=== PATIENT | female | born 1980 | race Caucasian/White ===

== ENCOUNTER 2018-07-30 11:32 | Day surgery (SDC) | payer OTHER ==
[~2018-07-30] VITALS: Ht 180.3 cm; Wt 153.4 kg
[~2018-07-30 11:32] MED LIST: ALBU90OI INH; AMLO10 PO; AMLO5 PO; AZIT250 PO; B-121000 MC2 PO; Budeprion Sr150 MG; CEPH500 PO; CIPR500 PO; CITA20 PO; CRUTCH4 USE; Cipro500 MG PO; FERR325 PO; FLUSAL1005 INH; FLUSAL2505 INH; FURO20 PO; IBUP800 PO; LISI5 PO; MEDR10 PO; NAPR500 PO; OXYACE5T PO; Omeprazole20 M1 PO; PHENA100 PO; POTCHL20ER PO; PROM25 PO; PSEU120ER PO; Percocet 5-3251 EACH PO; RXHYD5325 PO; Sprintec1 EACH PO; TIOT18 INH; ZESTORETIC 20-121 EA PO; ZESTRIL40 MG PO; Zofran Odt4 MG SL
--- NOTE | 2018-07-30 12:16 | NUR ---
07/30/18 1216 Paola Rahman 2 IV ATTEMPTS BY [facility], 1ST IN L HAND WAS UNSUCCESSFUL, 2ND IN L FOREARM WAS SUCCESSFUL
[2018-07-30] MEDS ORDERED: FLUT1DIS2 INH (12:19)
--- NOTE | 2018-07-30 14:34 | NUR ---
07/30/18 1433 Jory Sotelo TOOK REPORT FROM [facility] PT RESTING IN RECLINER, DRINKING WATER AND TALKING WITH FAMILY AT CHAIRSIDE. PT DENIES PAIN/NAUSEA AT THIS TIME. VSS. CALL LIGHT IN REACH.
== END 2018-07-30 15:07 | disposition home or self-care (01) ==
LOC: ORSCSDS 11:32
PROVIDERS: Orthopaedic Surgery
PROC: 0MNN4ZZ Release Right Knee Bursa and Ligament, Percutaneous Endoscopic Approach (ICD-10-PCS; principal; 2018-07-30 13:00)
PROC: 0SBC4ZZ Excision of Right Knee Joint, Percutaneous Endoscopic Approach (ICD-10-PCS; principal; 2018-07-30 13:00)
DX: M22.2X1 Patellofemoral disorders, right knee (principal); M22.41 Chondromalacia patellae, right knee; M65.851 Other synovitis and tenosynovitis, right thigh; S83.241A Other tear of medial meniscus, current injury, right knee, initial encounter; I10 Essential (primary) hypertension; J44.9 Chronic obstructive pulmonary disease, unspecified; Z87.891 Personal history of nicotine dependence; K21.9 Gastro-esophageal reflux disease without esophagitis; E66.01 Morbid (severe) obesity due to excess calories; Z68.42 Body mass index [BMI] 45.0-49.9, adult; Z79.899 Other long term (current) drug therapy; F41.8 Other specified anxiety disorders
CPT/HCPCS: J0171; J0690; J1100; J1885; J2250; J2405; J2704; J3010; J7120

== ENCOUNTER → 2018-09-17 | Outpatient (CLI) | payer OTHER ==
[~2018-09-17] MED LIST changes: +FLUT1DIS2 INH
== END | disposition home or self-care (01) ==
LOC: LAB EV 12:03 → LAB SHORT 12:03
DX: L08.9 Local infection of the skin and subcutaneous tissue, unspecified (principal)
CPT/HCPCS: 87070; 87077; 87147; 87186; 87205

== ENCOUNTER 2018-11-16 10:19 | Emergency (ER) | payer SELFPAY ==
[~2018-11-16] VITALS: Ht 180.3 cm; Wt 151.9 kg
[2018-11-16 13:17] LABS: BASOPHILS ABSOLUTE AUTO 0.05 K/mm3 (0.00-0.23); BASOPHILS PERCENT AUTO 1 % (0-2); EOSINOPHILS ABSOLUTE AUTO 0.12 K/mm3 (0.00-0.68); EOSINOPHILS PERCENT AUTO 1 % (0-6); Hematocrit 44.9 % (33.0-51.0); Hemoglobin 15.1 g/dL (11.5-16.0); IMMATURE GRAN ABSOLUTE AUTO 0.05 K/mm3 (0.00-0.10); IMMATURE GRAN PERCENT AUTO 1 % (0-1); LYMPHOCYTES ABSOLUTE AUTO 1.36 K/mm3 (0.84-5.20); LYMPHOCYTES PERCENT AUTO 14 % (21-46); MONOCYTES ABSOLUTE AUTO 1.12 K/mm3 (0.16-1.47); MONOCYTES PERCENT AUTO 12 % (4-13); Mean Corpuscular HGB 32.8 pg (26.0-34.0); Mean Corpuscular HGB Conc 33.6 g/dL (31.5-36.5); Mean Corpuscular Volume 98 fL (80-100); Mean Platelet Volume 11.8 fL (9.1-12.4); NEUTROPHILS ABSOLUTE AUTO 6.79 K/mm3 (1.96-9.15); NEUTROPHILS PERCENT AUTO 72 % (41-73); Platelet Count 203 K/mm3 (150-400); RDW Coefficient Variation 12.8 % (11.7-14.2); RDW Standard Deviation 45.5 fL (35.1-46.3); White Blood Cell Count 9.49 K/mm3 (4.00-11.30)
[2018-11-16 13:25] LABS: Alanine Aminotransfer (ALT/SGP 86 U/L (12-78); Albumin, Blood 3.3 g/dL (3.4-5.0); Albumin/Globulin Ratio 0.8 (0.8-1.8); Alk Phos 83 U/L (50-136); Anion Gap 9 mmol/L (6-16); Aspartate Aminotrans (AST/SGOT 65 U/L (12-37); Bilirubin, Total 0.5 mg/dL (0.1-1.0); Blood Urea Nitrogen 6 mg/dL (8-24); CO2, Blood 23 mmol/L (21-32); Calcium, Blood 8.6 mg/dL (8.5-10.1); Chloride, Blood 102 mmol/L (98-108); Globulin, Blood 4.4 g/dL (2.2-4.0); Glomerular Filtration Rate >60 (60-); Glucose, Blood 127 mg/dL (70-99); Potassium, Blood 4.3 mmol/L (3.5-5.5); Sodium, Blood 134 mmol/L (136-145); Total Protein, Blood 7.7 g/dL (6.4-8.2)
[2018-11-16] MEDS ORDERED: Keflex500 MG PO (16:27)
[2018-11-16] MEDS ORDERED: Vibramycin100 MG PO (16:27)
[2018-12-31] MEDS ORDERED: Zestril40 MG PO (11:09)
== END 2018-11-16 16:40 | disposition home or self-care (01) ==
LOC: ER 10:19
PROVIDERS: Emergency Medicine
DX: L08.9 Local infection of the skin and subcutaneous tissue, unspecified (principal); Z88.8 Allergy status to other drugs, medicaments and biological substances; Z79.899 Other long term (current) drug therapy; I10 Essential (primary) hypertension; J44.9 Chronic obstructive pulmonary disease, unspecified; F32.9 Major depressive disorder, single episode, unspecified; Z87.891 Personal history of nicotine dependence
CPT/HCPCS: 36415; 73660; 80053; 85025; 85651; 86141; 99283-25

== ENCOUNTER 2018-11-24 07:30 | Day surgery (SDC) | payer SELFPAY ==
[~2018-11-24 07:30] MED LIST changes: +Keflex500 MG PO; +Vibramycin100 MG PO
[2018-12-31] MEDS ORDERED: Zestril40 MG PO (11:09)
== END 2018-11-24 23:36 | disposition home or self-care (01) ==
LOC: WOUND 07:30
DX: L97.519 Non-pressure chronic ulcer of other part of right foot with unspecified severity (principal); S91.101S Unspecified open wound of right great toe without damage to nail, sequela; I10 Essential (primary) hypertension
CPT/HCPCS: G0463

== ENCOUNTER 2018-11-30 00:28 | Day surgery (SDC) | payer SELFPAY ==
[2018-12-31] MEDS ORDERED: Zestril40 MG PO (11:09)
== END 2018-11-30 22:55 | disposition home or self-care (01) ==
LOC: WOUND 00:28
DX: L97.519 Non-pressure chronic ulcer of other part of right foot with unspecified severity (principal); S91.101S Unspecified open wound of right great toe without damage to nail, sequela; I10 Essential (primary) hypertension

== ENCOUNTER 2018-12-08 13:34 | Day surgery (SDC) | payer SELFPAY ==
[2018-12-31] MEDS ORDERED: Zestril40 MG PO (11:09)
== END 2018-12-08 23:11 | disposition home or self-care (01) ==
LOC: WOUND 13:34
DX: L97.529 Non-pressure chronic ulcer of other part of left foot with unspecified severity (principal); S91.101S Unspecified open wound of right great toe without damage to nail, sequela; I10 Essential (primary) hypertension; J44.9 Chronic obstructive pulmonary disease, unspecified

== ENCOUNTER 2018-12-15 00:52 | Day surgery (SDC) | payer SELFPAY ==
[2018-12-31] MEDS ORDERED: Zestril40 MG PO (11:09)
== END 2018-12-15 22:55 | disposition home or self-care (01) ==
LOC: WOUND 00:52
DX: L97.519 Non-pressure chronic ulcer of other part of right foot with unspecified severity (principal); S91.101S Unspecified open wound of right great toe without damage to nail, sequela; M86.48 Chronic osteomyelitis with draining sinus, other site; I10 Essential (primary) hypertension

== ENCOUNTER 2018-12-22 00:03 | Day surgery (SDC) | payer OTHER ==
[2018-12-31] MEDS ORDERED: Zestril40 MG PO (11:09)
== END 2018-12-22 22:39 | disposition home or self-care (01) ==
LOC: WOUND 00:03
DX: M86.171 Other acute osteomyelitis, right ankle and foot (principal); L97.511 Non-pressure chronic ulcer of other part of right foot limited to breakdown of skin; I10 Essential (primary) hypertension; S91.101S Unspecified open wound of right great toe without damage to nail, sequela
CPT/HCPCS: G0463

== ENCOUNTER 2019-01-01 09:25 | Day surgery (SDC) | payer OTHER ==
[~2019-01-01 09:25] MED LIST changes: +Zestril40 MG PO
--- NOTE | 2019-01-01 10:49 | NUR ---
01/01/19 Marii Ackerman RN ATTEMPTED IV ONCE IN THE LEFT HAND AND ONCE IN THE RIGHT HAND. BOTH ATTEMPTS UNSUCESSFUL. ORSKARY ATTEMPTED IV ONCE IN THE RIGHT FOREARM AND ONCE IN THE RIGHT AC, BOTH ATTEMPTS UNSUCESSFUL. GABINO ATTEMPTED IV IN THE LEFT WRIST UNSUCESSFUL. ORSDEVENDRA ATTEMPTED IV IN THE RIGHT FOOT, LEG CRAMP MOVED IV CATHETER; ATTEMPT UNSUCESSFUL. ORSLIV BROUGHT IN TO ATTEMPT IV IN THE LEFT HAND; ATTEMPT UNSUCESSFUL.
== END 2019-01-01 12:27 | disposition home or self-care (01) ==
LOC: ORSCSDS 09:25
PROVIDERS: Podiatrist Foot & Ankle Surgery
PROC: 0Y6R0Z1 Detachment at Right 2nd Toe, High, Open Approach (ICD-10-PCS; principal; 2019-01-01 11:15)
DX: M86.671 Other chronic osteomyelitis, right ankle and foot (principal); L97.519 Non-pressure chronic ulcer of other part of right foot with unspecified severity; I10 Essential (primary) hypertension; G47.33 Obstructive sleep apnea (adult) (pediatric); K21.9 Gastro-esophageal reflux disease without esophagitis; J44.9 Chronic obstructive pulmonary disease, unspecified; F17.210 Nicotine dependence, cigarettes, uncomplicated; G62.9 Polyneuropathy, unspecified; E78.5 Hyperlipidemia, unspecified; E66.01 Morbid (severe) obesity due to excess calories; Z68.42 Body mass index [BMI] 45.0-49.9, adult; Z79.899 Other long term (current) drug therapy
CPT/HCPCS: 88305; 88311; J0171; J0690; J2250; J2405; J2704; J7120

== ENCOUNTER → 2019-04-29 | Outpatient (CLI) | payer OTHER ==
[~2019-04-29] MED LIST changes: +ACET325 PO; +Bactrim Ds Tab1 EACH PO; +CEFD300 PO; +FLUTICASONE-SA1 EACH INH; +HYDHCL25 PO; +Hydrochlorothia25 MG PO; +OXYC5 PO; +TOPI25 PO; +ZOFRAN4 MG PO
[2019-04-29 09:44] LABS: BASOPHILS ABSOLUTE AUTO 0.03 K/mm3 (0.00-0.23); BASOPHILS PERCENT AUTO 0 % (0-2); EOSINOPHILS ABSOLUTE AUTO 0.02 K/mm3 (0.00-0.68); EOSINOPHILS PERCENT AUTO 0 % (0-6); Hematocrit 37.8 % (33.0-51.0); Hemoglobin 13.5 g/dL (11.5-16.0); IMMATURE GRAN ABSOLUTE AUTO 0.07 K/mm3 (0.00-0.10); IMMATURE GRAN PERCENT AUTO 1 % (0-1); LYMPHOCYTES PERCENT AUTO 9 % (21-46); MONOCYTES ABSOLUTE AUTO 1.22 K/mm3 (0.16-1.47); MONOCYTES PERCENT AUTO 14 % (4-13); Mean Corpuscular HGB 33.2 pg (26.0-34.0); Mean Corpuscular HGB Conc 35.7 g/dL (31.5-36.5); Mean Corpuscular Volume 93 fL (80-100); Mean Platelet Volume 9.8 fL (9.1-12.4); NEUTROPHILS PERCENT AUTO 76 % (41-73); Platelet Count 243 K/mm3 (150-400); RDW Coefficient Variation 12.8 % (11.7-14.2); RDW Standard Deviation 43.4 fL (35.1-46.3); Red Blood Cell Count 4.07 M/mm3 (3.80-5.20); White Blood Cell Count 9.04 K/mm3 (4.00-11.30)
[2019-04-29 09:50] LABS: Bun/Creatinine Ratio 12.8 (12.0-20.0); Calcium, Blood 9.8 mg/dL (8.5-10.1); Creatinine, Blood 2.9 mg/dL (0.40-1.00); Potassium, Blood 3.6 mmol/L (3.5-5.5)
[2019-04-29 13:46] LABS: Bun/Creatinine Ratio 15.1 (12.0-20.0); Calcium, Blood 8.6 mg/dL (8.5-10.1); Creatinine, Blood 2.18 mg/dL (0.40-1.00); Potassium, Blood 4.2 mmol/L (3.5-5.5)
== END | disposition home or self-care (01) ==
LOC: LAB SHORT 09:38 → LAB EV 09:38
PROVIDERS: Family Medicine
DX: E86.0 Dehydration (principal); E87.1 Hypo-osmolality and hyponatremia; N39.0 Urinary tract infection, site not specified
CPT/HCPCS: 80048; 85025; 87077; 87086; 87186

== ENCOUNTER → 2019-04-30 | Outpatient (CLI) | payer OTHER ==
[2019-04-30 16:34] LABS: Bun/Creatinine Ratio 15.2 (12.0-20.0); Calcium, Blood 9.7 mg/dL (8.5-10.1); Creatinine, Blood 1.65 mg/dL (0.40-1.00); Potassium, Blood 3.9 mmol/L (3.5-5.5)
== END | disposition home or self-care (01) ==
LOC: LAB EV 16:16 → LAB SHORT 16:16
PROVIDERS: Family Medicine
DX: E87.1 Hypo-osmolality and hyponatremia (principal)
CPT/HCPCS: 80048

== ENCOUNTER 2019-05-01 12:41 | Inpatient (IN) | payer OTHER ==
[~2019-05-01] VITALS: Ht 177.8 cm; Wt 140.9 kg
[~2019-05-01 12:41] MED LIST changes: -ACET325 PO; -Bactrim Ds Tab1 EACH PO; -CEFD300 PO; -FLUTICASONE-SA1 EACH INH; -HYDHCL25 PO; -Hydrochlorothia25 MG PO; -OXYC5 PO; -TOPI25 PO; -ZOFRAN4 MG PO
[2019-05-01 15:44] LABS: BASOPHILS ABSOLUTE AUTO 0.05 K/mm3 (0.00-0.23); BASOPHILS PERCENT AUTO 0 % (0-2); EOSINOPHILS ABSOLUTE AUTO 0.04 K/mm3 (0.00-0.68); EOSINOPHILS PERCENT AUTO 0 % (0-6); Hematocrit 38.1 % (33.0-51.0); Hemoglobin 13.3 g/dL (11.5-16.0); IMMATURE GRAN ABSOLUTE AUTO 0.08 K/mm3 (0.00-0.10); IMMATURE GRAN PERCENT AUTO 1 % (0-1); LYMPHOCYTES ABSOLUTE AUTO 1.18 K/mm3 (0.84-5.20); LYMPHOCYTES PERCENT AUTO 8 % (21-46); MONOCYTES ABSOLUTE AUTO 1.28 K/mm3 (0.16-1.47); MONOCYTES PERCENT AUTO 9 % (4-13); Mean Corpuscular HGB Conc 34.9 g/dL (31.5-36.5); Mean Corpuscular Volume 95 fL (80-100); Mean Platelet Volume 9.8 fL (9.1-12.4); NEUTROPHILS ABSOLUTE AUTO 12.24 K/mm3 (1.96-9.15); NEUTROPHILS PERCENT AUTO 82 % (41-73); Platelet Count 242 K/mm3 (150-400); RDW Coefficient Variation 12.4 % (11.7-14.2); RDW Standard Deviation 43.5 fL (35.1-46.3); Red Blood Cell Count 4.03 M/mm3 (3.80-5.20); White Blood Cell Count 14.87 K/mm3 (4.00-11.30)
[2019-05-01 15:58] LABS: Bun/Creatinine Ratio 17.9 (12.0-20.0); Calcium, Blood 9.5 mg/dL (8.5-10.1); Creatinine, Blood 1.12 mg/dL (0.40-1.00); Potassium, Blood 3.5 mmol/L (3.5-5.5)
[2019-05-01] MEDS ORDERED: Hydrochlorothia25 MG PO (16:55)
[2019-05-01] MEDS ORDERED: TOPI25 PO (16:56)
[2019-05-01] MEDS ORDERED: FLUTICASONE-SA1 EACH INH (16:56)
--- NOTE | 2019-05-01 18:46 | NUR ---
Assumed Care Patient admitted from ER to room 312 via stretcher. A/Ox4, patient oriented to room and call system. Bed in lowest position. Family visiting and at bedside. Per Dr. Dangelo, home medications of Albuteral, Fluticasone, and Omeprazole to be updated in [facility], this RN will ensure these meds are updated. Home med list incomplete at this time, family will send pictures of medication bottles to patient so RN can update Med Rec; oncoming RN to call Dr. Dangelo with updates; will pass this on. Patient independent in room. Call light near, will continue to monitor.
[2019-05-01] MEDS ORDERED: HYDHCL25 PO (20:53)
[2019-05-01] MEDS ORDERED: ZOFRAN4 MG PO (20:55)
[2019-05-01] MEDS ORDERED: CEFD300 PO (20:55)
[2019-05-01] MEDS ORDERED: AMLO10 PO (20:56)
--- NOTE | 2019-05-02 04:59 | NUR ---
SHIFT SUMMARY PT HAS RESTED COMFORTABLY T/O THE SHIFT. PT HAS BEEN MEDICATED FOR PAIN IN HER LEFT GREAT TOE R/T TO CELLULITIS PER ORDERS. PAIN MEDICATION PROVIDES RELIEF. LEFT GREAT TOE IS SWOLLEN WITH CLEAR PUS LIKE DRAINAGE. PT HAS NO FEELING IN HER FEET OR TOES, BUT SHE REPORTS THAT SHE CAN FEEL THE PAIN SHOOTING UP HER LEG. IV ABX INFUSED PER ORDERS. MAINTENANCE FLUIDS INFUSING PER ORDERS. LEFT GREAT TOE WOUND CULTURED AND SENT, PENDING RESULTS AT THIS TIME. PT HAS BEEN INDPENDENT AND AMBULATORY IN THE ROOM. VITALS STABLE. BED IN LOWEST POSITION, CALL LIGHT WITHIN REACH. WILL CONTINUE TO MONITOR AND REPORT TO ONCOMING RN.
[2019-05-02 05:22] LABS: BASOPHILS ABSOLUTE AUTO 0.04 K/mm3 (0.00-0.23); BASOPHILS PERCENT AUTO 0 % (0-2); EOSINOPHILS ABSOLUTE AUTO 0.08 K/mm3 (0.00-0.68); EOSINOPHILS PERCENT AUTO 1 % (0-6); Hematocrit 35.8 % (33.0-51.0); Hemoglobin 12.1 g/dL (11.5-16.0); IMMATURE GRAN ABSOLUTE AUTO 0.08 K/mm3 (0.00-0.10); IMMATURE GRAN PERCENT AUTO 1 % (0-1); LYMPHOCYTES ABSOLUTE AUTO 1.22 K/mm3 (0.84-5.20); LYMPHOCYTES PERCENT AUTO 10 % (21-46); MONOCYTES ABSOLUTE AUTO 1.33 K/mm3 (0.16-1.47); MONOCYTES PERCENT AUTO 11 % (4-13); Mean Corpuscular HGB 32.6 pg (26.0-34.0); Mean Corpuscular HGB Conc 33.8 g/dL (31.5-36.5); Mean Corpuscular Volume 97 fL (80-100); Mean Platelet Volume 9.8 fL (9.1-12.4); NEUTROPHILS ABSOLUTE AUTO 9.63 K/mm3 (1.96-9.15); NEUTROPHILS PERCENT AUTO 78 % (41-73); Platelet Count 251 K/mm3 (150-400); RDW Coefficient Variation 12.7 % (11.7-14.2); RDW Standard Deviation 45.2 fL (35.1-46.3); Red Blood Cell Count 3.71 M/mm3 (3.80-5.20); White Blood Cell Count 12.38 K/mm3 (4.00-11.30)
[2019-05-02 05:46] LABS: Alanine Aminotransfer (ALT/SGP 40 U/L (12-78); Albumin, Blood 2.9 g/dL (3.4-5.0); Albumin/Globulin Ratio 0.6 (0.8-1.8); Alk Phos 93 U/L (50-136); Anion Gap 10 mmol/L (6-16); Aspartate Aminotrans (AST/SGOT 25 U/L (12-37); Blood Urea Nitrogen 13 mg/dL (8-24); Bun/Creatinine Ratio 13.2 (12.0-20.0); CO2, Blood 23 mmol/L (21-32); Calcium, Blood 8.5 mg/dL (8.5-10.1); Chloride, Blood 97 mmol/L (98-108); Creatinine, Blood 0.99 mg/dL (0.40-1.00); Globulin, Blood 4.6 g/dL (2.2-4.0); Glomerular Filtration Rate >60 (60-); Glucose, Blood 93 mg/dL (70-99); Potassium, Blood 3.6 mmol/L (3.5-5.5); Sodium, Blood 130 mmol/L (136-145); Total Protein, Blood 7.5 g/dL (6.4-8.2)
--- NOTE | 2019-05-02 19:09 | NUR ---
Shift Summary A/Ox4, pleasant and cooperative with care. Pt has been independent in room and to the bathroom. Dressing changed x 2 and is now C/D/I. Medicated for 09/21 pain x 2 with good results. No other concerns at this time.
--- NOTE | 2019-05-03 04:57 | NUR ---
SHIFT SUMMARY PT PLEASANT AND COOPERATIVE, ANXIOUS AT TIMES. PT REPORTS BEING MORE ANXIOUS THIS EVENING DUE TO PROCEDURE SCHEDULED FOR TODAY. MEDICATED W/ ATARAX 25 MG X 1. PT'S LEFT GREAT TOE RED AND SWOLLEN. MODERATE AMOUNT OF PURULENT DRAINAGE. DRESSING CHANGED X 2 THIS SHIFT. CLEANSED W/ WOUND PLANNING ANALYST AND DRESSED W/ KERLEX AND ROSA ELENA WRAP. SURGICAL BOOT ON LEFT FOOT AT ALL TIMES. PT REPORTS HAVING NO FEELING TO BILATERAL FEET BUT HAS SHOOTING PAIN UP HER LEFT LEG. MEDICATED X 2 W/ 5 MG ROXICODONE. PT NPO SINCE MIDNIGHT FOR PROCEDURE TODAY OF I & D W/ POSSIBLE AMPUTATION. VITAL SIGNS STABLE. NO OTHER ACUTE CHANGES. WILL CONTINUE TO MONITOR AND REPORT TO DAY RN.
[2019-05-03 08:09] LABS: Vancomycin, Trough 19.7 ug/mL (5.0-10.0)
--- NOTE | 2019-05-03 13:37 | NUR ---
PT TO DAY SURGERY VIA [facility].
--- NOTE | 2019-05-03 14:25 | NUR ---
Patient up to Ambulate independently. Gait steady. History, Chart, Medications and Allergies reviewed before start of procedure.Lungs clear T/O to Auscultation. Patient confirms NPO status and agrees with scheduled surgery. TWO PIERCINGS PLACED IN ZIPLOC AND ATTACHED TO RING ON CHART WITH NAME TAG. PLACED BOOT FOR LEFT FOOT UNDER BED IN BAG WITH NAME TAG ON SHOE AND BAG. AWARE OF PLAN FOR SURGERY.
--- NOTE | 2019-05-03 19:33 | NUR ---
SHIFT SUMMARY. A&OX4, CGA TO BSC WITH FWW, POST OP SHOE, HEEL TOUCH LLE ONLY, PT DID WELL WITH TRANSFERS AFTER INSTRUCTION. DRESSING TO LLE C/D/I, PT REPORTS NUMBNESS TO BILATERAL FEET. PT REPORTED PAIN TO L LEG THAT WAS MANAGED WELL WITH PO ROXICODONE. PT DENIES N/V, SOB. FAMILY AT BEDSIDE THIS AFTERNOON. NO NEW CHANGES OR CONCERNS.
--- NOTE | 2019-05-03 20:00 | NUR ---
JARRET SITTING IN BED WATCHING TV. STATES PAIN IS MILD BUT WILL NEED SOME PAIN MEDS SOON. STATES SHE CAN FEEL THE PAIN IN THE UPPER CALF IT RADIATES UP, FEET ARE NUMB WHICH ARE NORMAL FOR HER. CHECKED TOES FOR CIRCULATION WHICH WERE NORMAL. NO REDNESS UP THE CALF. IV FLUIDS INFUSING WELL. FAMILY IS AT THE SIDE VISITING. DENIES OTHER COMPLAINTS AT THIS TIME. WILL MEDICATE FOR PAIN WHICH MED IS DUE. CALL LIGHT IN REACH.
--- NOTE | 2019-05-04 05:14 | NUR ---
SHIFT SUMMARY: JARRET VS HAVE REMAINED STABLE. PAIN REMAINED AT TOLERABLE LEVEL WITH USE OF OXYCODONE. IV CONTINUED TO INFUSE FLUIDS AND ANTIBOTICS PER ORDERS. SHE IS ABLE TO USE HEEL TOUCH WITH ORTHO SHOE IN PLACE AND WALKER TO USE THE BATHROOM. NEEDS 1 PERSON ASSIST DUE TO IV POLE. LEFT FOOT GOOD CIRCULATION, CHRONIC NUMBNESS, NO REDNESS UP THE LEG. SHE HAS KEPT IT ELEVATED ON PILLOW WHILE IN BED. NO OTHER ACUTE CHANGES OCCURRED THIS SHIFT. CALL LIGHT REMAINED IN REACH.
[2019-05-04 09:10] LABS: Vancomycin, Trough 22.3 ug/mL (5.0-10.0)
--- NOTE | 2019-05-04 09:18 | NUR ---
05/04/19 0918 Anu Harkins VERIFICATIONS: EDIT CHART.
--- NOTE | 2019-05-04 19:07 | NUR ---
SHIFT SUMMARY. A&OX4, INDEPENDENT TO BATHROOM WITH L HEEL TOUCH WB WITH FWW, PT TOLERATING WELL. L FOOT STILL WITH REDNESS, DR. ARMENTA REQUESTED THAT PT STAY FOR FURTHER IV ABX, DR. JOHNSON NOTIFIED. PT REPORTS L LEG PAIN THAT IS MANAGED WELL WITH CURRENT ORDERS. CHRONIC BILATERAL FOOT NUMBNESS. PT DENIES SOB, N/V. ADEQUATE PO INTAKE. IV SL. DRESSING TO L FOOT C/D/I. NO NEW CHANGES OR CONCERNS.
--- NOTE | 2019-05-04 19:29 | NUR ---
PATIENT SITTING ON SIDE OF BED, VS BEING TAKEN. IV INFUSING JUST FINISHED ANTIBOTICS. SL IV. SITE APPEARS A LITTLE RED, BUT FLUSHES GOOD WITH NO PAIN. STATES PAIN IS GOOD AT THIS TIME. JUST GOT PAIN MEDICATION. LEFT FOOT STILL WRAPPED BUT HAS GOOD CIRCULATION TO TOES, NUMBNESS UNCHANGED. PATIENT GOT UP TO BATHROOM WITH WALKER ON HER OWN. CALL LIGHT IN REACH.
--- NOTE | 2019-05-05 05:39 | NUR ---
SHIFT SUMMARY: JARRET VS HAVE REMAINED STABLE. IV WAS RESTARTED IN THE LEFT FA 22 G. DC'D PREVIOUS IV FOR PAIN. PAIN HAS REMAINED TOLERABLE WITH USE OF OXYCODONE. IS INDEPENDANT IN THE ROOM WITH WALKER. ORTHO SHOE HAS REMAINED ON LEFT FOOT, GOOD CIRCULATION NOTED. NO ACUTE CHANGES OR CONCERN NOTED. CALL LIGHT REMAINED IN REACH AND USED APPROPRIATLY.
[2019-05-05 05:55] LABS: BASOPHILS ABSOLUTE AUTO 0.04 K/mm3 (0.00-0.23); BASOPHILS PERCENT AUTO 1 % (0-2); EOSINOPHILS ABSOLUTE AUTO 0.11 K/mm3 (0.00-0.68); EOSINOPHILS PERCENT AUTO 2 % (0-6); Hematocrit 33.7 % (33.0-51.0); Hemoglobin 11.3 g/dL (11.5-16.0); IMMATURE GRAN PERCENT AUTO 1 % (0-1); LYMPHOCYTES ABSOLUTE AUTO 1.69 K/mm3 (0.84-5.20); LYMPHOCYTES PERCENT AUTO 24 % (21-46); MONOCYTES ABSOLUTE AUTO 0.69 K/mm3 (0.16-1.47); MONOCYTES PERCENT AUTO 10 % (4-13); Mean Corpuscular HGB 32.8 pg (26.0-34.0); Mean Corpuscular HGB Conc 33.5 g/dL (31.5-36.5); Mean Corpuscular Volume 98 fL (80-100); Mean Platelet Volume 9.4 fL (9.1-12.4); NEUTROPHILS PERCENT AUTO 62 % (41-73); Platelet Count 398 K/mm3 (150-400); RDW Coefficient Variation 12.6 % (11.7-14.2); RDW Standard Deviation 45.6 fL (35.1-46.3); Red Blood Cell Count 3.45 M/mm3 (3.80-5.20); White Blood Cell Count 6.93 K/mm3 (4.00-11.30)
[2019-05-05 06:14] LABS: Anion Gap 7 mmol/L (6-16); Blood Urea Nitrogen 4 mg/dL (8-24); Bun/Creatinine Ratio 4.6 (12.0-20.0); CO2, Blood 22 mmol/L (21-32); Calcium, Blood 8.6 mg/dL (8.5-10.1); Chloride, Blood 106 mmol/L (98-108); Creatinine, Blood 0.88 mg/dL (0.40-1.00); Glomerular Filtration Rate >60 (60-); Glucose, Blood 87 mg/dL (70-99); Potassium, Blood 3.8 mmol/L (3.5-5.5); Sodium, Blood 135 mmol/L (136-145); Vancomycin, Trough 15.4 ug/mL (5.0-10.0)
--- NOTE | 2019-05-05 15:46 | NUR ---
summary PT IS A/O X4, PLEASANT AFFECT. SHE IS UP IND w POST-OP SHOE L FOOT, HEEL TOUCH WT BRG. DR ARMENTA IN TO ASSESS L BIG TOE AMPUTATION WOUND & CHANGE DRSG TODAY, STATE REDDENED AREA HAS IMPROVED HOWEVER CONTINUES TO AWAIT CX RESULTS, STATE NO D/C TODAY, POSSIBLY TOMORROW. IV ANTIBX CONTINUE. VSS. DR JOHNSON & SEKOUEEN D/C BOTTOM TURNING LATHE TENDER WERE IN SEE HER, ADDRESS POSSIBLE HOME NEEDS AFTER D/C.
--- NOTE | 2019-05-06 05:30 | NUR ---
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 PT IS ABLE TO AMBULATE INDEPEDENTLY IN THE ROOM WITH A WALKER AND SURGICAL SHOE. SURGICAL DRESSING IS IN PLACE AND INTACT. SHE WAS MEDICATED X2 FOR LLE PAIN WITH PRN OXYCODONE. NO COMPLAINTS OF NAUSEA OR SOB. VITAL SIGNS STABLE. NO ACUTE CHANGES IN PT CONDITION NOTED. WILL CONTINUE TO MONITOR AND TREAT PER [facility] UNTIL HAND OFF TO DAY SHIFT RN.
--- NOTE | 2019-05-06 15:41 | NUR ---
DISCHARGE DR ARMENTA IN THIS AFTERNOON TO SEE PT & REVIEW RESULTS OF TESTS, STATE OK FOR D/C HOME TODAY, PROVIDE PT W WRITTEN SCRIPTS FOR PERCOCET & BACTRIM. INSTRUCT PT TO KEEP L FOOT DRSG CDI & F/U W HIM IN 1 WEEK FOR WOUND CARE/DRSG CHANGE. DR JOHNSON IN TO SEE PT, PROVIDE D/C ORDERS. [facility] DC PIZZA MAKER ARRANGE F/U APPTS. & WALKER FOR HOME USE. IV SITE D/C INTACT. D/C INSTRUCT REVIEWED. PT'S IN FOR TRANSPORT HOME.
[2019-05-06] MEDS ORDERED: ACET325 PO (15:50)
[2019-05-06] MEDS ORDERED: OXYC5 PO (15:51)
[2019-05-06] MEDS ORDERED: Bactrim Ds Tab1 EACH PO (15:54)
== END 2019-05-06 16:30 | disposition home or self-care (01) | DRG 580 ==
LOC: ER 12:41 → MEDS 16:21 → ER 17:35 → MEDS 17:47 → ENPENDDIS 05-06 14:07 → MEDS 05-06 16:30
PROVIDERS: Internal Medicine; Physician Assistant; Podiatrist Foot & Ankle Surgery; ADMIT Internal Medicine
PROC: 0Y6Q0Z0 Detachment at Left 1st Toe, Complete, Open Approach (ICD-10-PCS; principal; 2019-05-03 14:30)
DX: L02.612 Cutaneous abscess of left foot (principal); E87.1 Hypo-osmolality and hyponatremia; L03.116 Cellulitis of left lower limb; Z68.41 Body mass index [BMI] 40.0-44.9, adult; G62.9 Polyneuropathy, unspecified; F17.210 Nicotine dependence, cigarettes, uncomplicated; V00.818A Other accident with wheelchair (powered), initial encounter; I10 Essential (primary) hypertension; J44.9 Chronic obstructive pulmonary disease, unspecified; E66.01 Morbid (severe) obesity due to excess calories; F41.8 Other specified anxiety disorders; Y92.9 Unspecified place or not applicable
CPT/HCPCS: 36415; 73630; 80048; 80053; 80202; 82565; 83605; 85025; 87040; 87070; 87075; 87076; 87205; 88305; 88311; 94640; 94760; 96365-59; 96372-59; 99284-25; J0696; J1170; J1644; J2250; J2543; J2704; J3010; J3370; J3480; J7030; J7050; J7120

== ENCOUNTER 2019-07-16 14:31 | Emergency (ER) | payer OTHER ==
[~2019-07-16] VITALS: Ht 180.3 cm; Wt 136.1 kg
[~2019-07-16 14:31] MED LIST changes: -LOMAIRA8 MG PO; -Norco 5-325 Ta1 EACH PO
[2019-07-16] MEDS ORDERED: LOMAIRA8 MG PO (14:56)
[2019-07-16 16:18] LABS: Source, Urine Clean Catch
[2019-07-16 16:21] LABS: Bilirubin, Urine Neg (Neg); Blood, Urine 1+ (Neg); Glucose Qualitative, Urine Neg (Neg); Ketones, Urine Neg (Neg); Leukocyte Esterase, Urine Neg (Neg); Nitrite, Urine Neg (Neg); Protein, Urine 1+ (Neg); Urobilinogen, Urine NORM (Normal)
[2019-07-16 16:27] LABS: Appearance, Urine Clear (Clear); Color, Urine Yellow (P-Yellow)
[2019-07-16 16:29] LABS: Bacteria Few /hpf; Red Blood Cells, Urine 0-2 /hpf (0-2); Squamous Epithelial Cells Few /hpf (Few); White Blood Cells, Urine 0-2 /hpf (0-5)
[2019-07-16] MEDS ORDERED: Norco 5-325 Ta1 EACH PO (16:50)
== END 2019-07-16 16:55 | disposition home or self-care (01) ==
LOC: ER 14:31
PROVIDERS: Physician Assistant
DX: K63.89 Other specified diseases of intestine (principal); I10 Essential (primary) hypertension; J45.909 Unspecified asthma, uncomplicated; F41.9 Anxiety disorder, unspecified; F32.9 Major depressive disorder, single episode, unspecified; G62.9 Polyneuropathy, unspecified; F17.210 Nicotine dependence, cigarettes, uncomplicated; Z88.8 Allergy status to other drugs, medicaments and biological substances; Z79.899 Other long term (current) drug therapy
CPT/HCPCS: 74176; 81001; 96360; 99284-25; J7030

== ENCOUNTER → 2019-07-16 | Outpatient (CLI) | payer OTHER ==
[~2019-07-16] MED LIST changes: +ACET325 PO; +Bactrim Ds Tab1 EACH PO; +CEFD300 PO; +FLUTICASONE-SA1 EACH INH; +HYDHCL25 PO; +Hydrochlorothia25 MG PO; +LOMAIRA8 MG PO; +Norco 5-325 Ta1 EACH PO; +OXYC5 PO; +TOPI25 PO; +ZOFRAN4 MG PO
[2019-07-16 13:36] LABS: BASOPHILS ABSOLUTE AUTO 0.04 K/mm3 (0.00-0.23); BASOPHILS PERCENT AUTO 0 % (0-2); EOSINOPHILS ABSOLUTE AUTO 0.09 K/mm3 (0.00-0.68); EOSINOPHILS PERCENT AUTO 1 % (0-6); Hematocrit 50.7 % (33.0-51.0); Hemoglobin 16.8 g/dL (11.5-16.0); IMMATURE GRAN ABSOLUTE AUTO 0.03 K/mm3 (0.00-0.10); IMMATURE GRAN PERCENT AUTO 0 % (0-1); LYMPHOCYTES ABSOLUTE AUTO 0.61 K/mm3 (0.84-5.20); LYMPHOCYTES PERCENT AUTO 6 % (21-46); MONOCYTES ABSOLUTE AUTO 0.48 K/mm3 (0.16-1.47); MONOCYTES PERCENT AUTO 5 % (4-13); Mean Corpuscular HGB 32.9 pg (26.0-34.0); Mean Corpuscular HGB Conc 33.1 g/dL (31.5-36.5); Mean Corpuscular Volume 99 fL (80-100); Mean Platelet Volume 11.4 fL (9.1-12.4); NEUTROPHILS ABSOLUTE AUTO 9.06 K/mm3 (1.96-9.15); NEUTROPHILS PERCENT AUTO 88 % (41-73); Platelet Count 218 K/mm3 (150-400); RDW Coefficient Variation 13.5 % (11.7-14.2); RDW Standard Deviation 49.4 fL (35.1-46.3); White Blood Cell Count 10.31 K/mm3 (4.00-11.30)
[2019-07-16 13:42] LABS: Alanine Aminotransfer (ALT/SGP 39 U/L (12-78); Albumin, Blood 3.8 g/dL (3.4-5.0); Albumin/Globulin Ratio 0.7 (0.8-1.8); Alk Phos 101 U/L (40-126); Anion Gap 10 mmol/L (6-16); Aspartate Aminotrans (AST/SGOT 28 U/L (12-37); Bilirubin, Total 0.9 mg/dL (0.1-1.0); Blood Urea Nitrogen 8 mg/dL (8-24); Bun/Creatinine Ratio 8.5 (12.0-20.0); CO2, Blood 27 mmol/L (21-32); Calcium, Blood 9.1 mg/dL (8.5-10.1); Chloride, Blood 100 mmol/L (98-108); Creatinine, Blood 0.94 mg/dL (0.40-1.00); Globulin, Blood 5.7 g/dL (2.2-4.0); Glomerular Filtration Rate >60 (60-); Glucose, Blood 104 mg/dL (70-99); Sodium, Blood 137 mmol/L (136-145); Total Protein, Blood 9.5 g/dL (6.4-8.2)
== END ==
LOC: LAB EV 13:28 → LAB SHORT 13:28
PROVIDERS: Nurse Practitioner
DX: R10.9 Unspecified abdominal pain (principal)
CPT/HCPCS: 80053; 83690; 85025

== ENCOUNTER → 2020-06-21 | Outpatient (CLI) | payer OTHER ==
[~2020-06-21] MED LIST changes: +LOMAIRA8 MG PO; +Norco 5-325 Ta1 EACH PO
== END ==
LOC: LAB SHORT 12:57 → LAB 12:57
DX: S93.105A Unspecified dislocation of left toe(s), initial encounter (principal); L97.509 Non-pressure chronic ulcer of other part of unspecified foot with unspecified severity
CPT/HCPCS: 87070; 87205

== ENCOUNTER → 2020-12-04 | Outpatient (CLI) | payer OTHER | END | disposition home or self-care (01) | LOC: LAB SHORT 08:23 → LAB 08:23 | DX: L57.0 Actinic keratosis (principal) | CPT/HCPCS: 88305; 88311 ==

== ENCOUNTER → 2022-01-08 | Outpatient (CLI) | payer OTHER | LOC: LAB 12:00 → LAB SHORT 12:00 | DX: L97.509 Non-pressure chronic ulcer of other part of unspecified foot with unspecified severity (principal) | CPT/HCPCS: 87070; 87077; 87186; 87205 ==